=== PATIENT | male | born 1995 | race Caucasian/White ===

== ENCOUNTER 2021-05-10 10:19 | Emergency (ER) | payer MEDICAID ==
[2021-05-10 11:46] LABS: CORONAVIRUS COVID-19 NAA POSITIVE (NEGATIVE)
== END 2021-05-10 12:00 | disposition home or self-care (01) ==
LOC: JD.ED 10:19
DX: U07.1 COVID-19 (principal); J10.1 Influenza due to other identified influenza virus with other respiratory manifestations
CPT/HCPCS: 0240U; 99283

== ENCOUNTER 2021-10-10 09:34 | Emergency (ER) | payer MEDICAID ==
[2021-10-10] MEDS ORDERED: LORazepam 2 MG/ML SDV IVPUSH ONE (10:01)
[2021-10-10] MEDS ORDERED: HYDROmorphone 0.5 MG/0.5 ML Syringe IVPUSH ONE (10:02)
[2021-10-10] MEDS ORDERED: Lidocaine 1% with EPINEPHrine 1:100,000 20 ML MDV INJECT ONE (10:02)
[2021-10-10] MEDS: Sodium Chloride 0.9% 10 ML Syringe FLUSH PRN ×2 (10:13→10:36)
[2021-10-10] MEDS ORDERED: Pantoprazole 40 MG Vial IVPUSH ONE (11:52)
== END 2021-10-10 12:30 | disposition home or self-care (01) ==
LOC: JD.ED 09:34
DX: S01.512A Laceration without foreign body of oral cavity, initial encounter (principal); R56.9 Unspecified convulsions; K29.21 Alcoholic gastritis with bleeding; Z79.899 Other long term (current) drug therapy; W22.09XA Striking against other stationary object, initial encounter
CPT/HCPCS: 36415; 41250; 70450; 80053; 80177; 83690; 83735; 85025; 96374; 96375; 99285; C9113; J1170; J2060; J3490

== ENCOUNTER 2021-10-17 20:08 | Emergency (ER) | payer MEDICAID ==
[2021-10-17] MEDS ORDERED: levETIRAcetam 500 MG Tab PO SCH (23:26)
[2021-10-18] MEDS ORDERED: levETIRAcetam 500 MG Tab PO SCH (09:00)
== END 2021-10-17 21:38 ==
LOC: JD.ED 20:08
DX: F32.A Depression, unspecified (principal); K21.9 Gastro-esophageal reflux disease without esophagitis; Z79.899 Other long term (current) drug therapy
CPT/HCPCS: 99284